=== PATIENT | male | born 1985 | race Native Hawaiian/Other Pacific Islander ===

== ENCOUNTER 2020-08-13 08:36 | Outpatient (CLI) | payer OTHER | END 2020-08-13 19:49 | disposition home or self-care (01) | LOC: MRI 08:36 | PROVIDERS: ATTEND Family Medicine | DX: M25.522 Pain in left elbow (principal); R20.2 Paresthesia of skin; M79.609 Pain in unspecified limb; S54.00XA Injury of ulnar nerve at forearm level, unspecified arm, initial encounter; G58.9 Mononeuropathy, unspecified; M25.60 Stiffness of unspecified joint, not elsewhere classified ==